=== PATIENT | male | born 2000 | race Caucasian/White ===

== ENCOUNTER 2022-05-16 12:41 | Emergency (ER) | payer BC, SELFPAY ==
[2022-05-16 13:01] VITALS: BP 120/84; PULSE 77; RESP 18; TEMP 37.2; O2SAT 95; BMI 33.9
--- NOTE | 2022-05-16 13:23 | CRLHL7_ITS ---
For Patients: As a result of the Century Cures Act, medical imaging exams and procedure reports are released immediately into your electronic medical record. You may view this report before your referring provider. If you have questions, please contact your health care provider. Indication: Right lower quadrant pain Technique: Volumetric multidetector CT images of the abdomen and pelvis were obtained after the administration of intravenous contrast. 122 cc Isovue 370 low osmolar intravenous contrast Comparison: None available. Findings: The lung bases are clear. The liver is mildly enlarged with minimal hepatic steatosis. There is no focal abnormality. The portal vein is patent. The gallbladder is unremarkable without evidence of radiopaque calculus. There is no significant common biliary ductal dilatation or abrupt cut off. The spleen is normal in enhancement and size. The stomach and duodenum are grossly unremarkable. The pancreas is normal in enhancement without significant atrophy. The adrenal glands are unremarkable. The kidneys demonstrate preserved corticomedullary differentiation without evidence of obstructive uropathy. There is moderate stool seen within the distal colon and rectum commensurate with likely mild fecal impaction there are fluid-filled loops of central and distal small bowel which may represent mild enteritis change. The appendix is unremarkable. There is no significant mesenteric, retroperitoneal, or pelvic sidewall lymph nodes. The aorta is nonaneurysmal. There is no significant atherosclerotic disease appreciated. The solid pelvic viscera are grossly unremarkable. There is no free fluid or free air. The anterior abdominal wall is intact without significant hernias. The lumbar vertebral body heights are grossly maintained in satisfactory alignment without evidence of displaced fracture, lytic or blastic lesion. Impression: Moderate stool seen throughout the distal colon and rectum commensurate with likely moderate fecal impaction. Minimal fluid filled loops of mid to distal small bowel which may represent mild enteritis change. Normal appendix. No other acute intra-abdominal abnormality is appreciated. Please note that all CT scans at this facility use dose modulation, iterative reconstruction, and/or weight-based dosing when appropriate to reduce radiation dose to as low as reasonably achievable. Dictated by Zachariah Martinez MD @ 05/16/2022 3:00:36 PM (Electronically Signed)
--- NOTE | 2022-05-16 13:24 | ED_ITS ---
HPI - Abdominal Pain General Chief Complaint: Abdominal Pain Stated Complaint: Abdominal pain Time Seen by Provider: 05/16/22 12:56 History of Present Illness HPI narrative: This 21-year-old male comes in with right lower quadrant abdominal pain that began 2 days ago. He has some nausea but no vomiting. He does not report any fever, dysuria, or or altered bowel function. He states that the pain is constant but does fluctuate some. Related Data Home Medications Medication Instructions Recorded Confirmed bupropion HCl 300 mg 24 hr tablet, 300 mg PO DAILY 05/16/22 05/16/22 extended release (Wellbutrin XL) bupropion HCl 300 mg 24 hr tablet, 300 mg PO DAILY 05/16/22 05/16/22 extended release (Wellbutrin XL) loratadine 10 mg tablet (Claritin) 10 mg PO DAILY 05/16/22 05/16/22 modafinil 200 mg tablet 200 mg PO DAILY 05/16/22 05/16/22 propranolol 120 mg capsule,24 120 mg PO DAILY 05/16/22 05/16/22 hr,extended release Allergies Allergy/AdvReac Type Severity Reaction Status Date / Time No Known Drug Allergies Allergy Verified 05/16/22 13:07 Review of Systems Status of ROS Reports: 10 or more systems reviewed and unremarkable except as noted in History and below Narrative Constitutional: No fevers, no weight gain or loss. Eyes: No discharge. No vision changes. HENT: No congestion, no sore throat, no ear pain. Cardiovascular: No chest pain, no palpitations. Respiratory: No shortness of breath, no wheezes, no cough. Gastrointestinal: No vomiting, no diarrhea. Right lower quadrant abdominal pain. Genitourinary: No dysuria, no hematuria. Musculoskeletal: Normal range of motion. Skin: No rashes, no pruritis. Neurological: No dizziness, weakness, sensory change, speech change. Endo/Heme/Allergies: No bruising or bleeding. No polydipsia. Pysch: no suicidality, no anxiety, no insomnia. All other systems reviewed and are negative. PFSH PFSH Social History Smoking Status: Never smoker Do you use any of these nicotine containing products: None Second hand tobacco smoke exposure: No How often do you have a drink containing alcohol: never How often do you have six or more drinks on one occasion: Never AUDIT-C Alcohol total score: 0 Non-prescribed substance use: denies use Exam Narrative: Exam Narrative: Constitutional: Well-developed, well-nourished, no acute distress. HEENT: Normocephalic, atraumatic. Neck: Normal range of motion. Nontender. Supple. Heart: Regular. No murmurs. Normal rate. Intact distal pulses. Lungs: Clear to auscultation. No chest discomfort. No wheezes, rhonchi, or rales. Abdomen: Normal bowel sounds. Tenderness at McBurney's point. No obvious rebound tenderness. Rovsing sign is present. Genitalia: Deferred. Back: No midline tenderness. Normal range of motion. Extremities: Normal range of motion. No injury. Skin: Intact. No rash. Warm. No erythema or pallor. Neurologic: No altered sensation. No weakness. Alert and oriented. Psychiatric: No suicidality. No anxiety or depression. No insomnia. Nursing notes and vitals signs are reviewed. Const: Vital Signs, click to edit/add: Vital Signs - 24 hr 05/16/22 13:01 05/16/22 14:18 Temperature 99.0 F Pulse Rate [Pulse Oximeter] 77 69 Respiratory Rate 18 Blood Pressure [Ri t Upper Arm] 120/84 138/95 H Pulse Oximetry 95 100 Oxygen Delivery Me thod Room Air Room Air Course Vital Signs Vital signs: Initial Vital Signs Temperature 99.0 F 05/16/22 13:01 Temperature Source Temporal Artery Scan 05/16/22 13:01 Pulse Rate 77 05/16/22 13:01 Pulse Rhythm 05/16/22 13:01 Respiratory Rate 18 05/16/22 13:01 Blood Pressure 120/84 05/16/22 13:01 Blood Pressure Mean 96 05/16/22 13:01 Blood Pressure Position Sitting 05/16/22 13:01 Pulse Oximetry 95 05/16/22 13:01 Oxygen Delivery Method 05/16/22 13:01 Vital Signs Temperature 99.0 F 05/16/22 13:01 Pulse Rate 77 05/16/22 13:01 Respiratory Rate 18 05/16/22 13:01 Blood Pressure 120/84 05/16/22 13:01 Pulse Oximetry 95 05/16/22 13:01 Oxygen Delivery Method 05/16/22 13:01 Temperature 99.0 F 05/16/22 13:01 Pulse Rate 69 05/16/22 14:18 Respiratory Rate 18 05/16/22 13:01 Blood Pressure 138/95 H 05/16/22 14:18 Pulse Oximetry 100 05/16/22 14:18 Oxygen Delivery Method 05/16/22 14:18 MDM - Abdominal Pain MDM Narrative Medical decision making narrative: This patient comes in with pain in his right lower quadrant as described above. Does not have obvious rebound tenderness. He states that he does have pre- existing recurrent abdominal pain that is nonspecific. Today his labs returned with normal findings. An IV was established where contrast was administered for CT scan. This also returns with no worrisome findings. There is a moderate amount of stool and some mild enteritis findings. These were communicated with the patient who is okay to return home. He declined any medications to treat his symptoms. Lab Data Labs: Lab Results 05/16/22 05/16/22 Range/Units 13:30 13:30 WBC 5.24 (4.50-11.00) K/uL RBC 5.61 (4.30-5.90) m/uL Hgb 16.8 (13.5-17.5) gm/dL Hct 49.0 (37.0-53.0) % MCV 87 (80-100) fL MCH 30 (26-34) pg MCHC 34 (32-36) gm/dL RDW Coeff of Meena 11.3 L (11.5-15.5) % Plt Count 233 (140-440) K/uL Neut % (Auto) 57.8 (42.0-72.0) % Lymph % (Auto) 32.4 (20-44) % [place] % (Auto) 8.6 (0.0-11.0) % Eos % (Auto) 1.0 (0.0-7.0) % Baso % (Auto) 0.2 (0.0-3.0) % Neut # (Auto) 3.03 (1.7-7.0) K/uL Lymph # (Auto) 1.70 (0.90-2.90) K/uL [place] # (Auto) 0.50 (0.00-0.90) K/UL Eos # (Auto) 0.05 (0.00-0.50) K/uL Baso # (Auto) 0.01 (0.00-0.30) K/uL Abs Immat Gran (auto) 0.00 (0.00-0.30) K/uL Sodium 140 (135-149) mmol/L Potassium 4.4 (3.6-5.1) mmol/L Chloride 104 (96-114) mmol/L Carbon Dioxide 25 (20-32) mmol/L BUN 16 (5-24) mg/dL Creatinine 0.8 (0.5-1.5) mg/dL Estimated Creat Clear 161.67 Estimated GFR 130 ml/min Glucose 107 (60-115) mg/dL Calcium 10.2 (8.4-10.6) mg/dL Imaging Data CT scan - abdomen: Radiologist's impression: Moderate stool seen throughout the distal colon and rectum commensurate with likely moderate fecal impaction. Minimal fluid filled loops of mid to distal small bowel which may represent mild enteritis change. Normal appendix. No other acute intra-abdominal abnormality is appreciated. Discharge Plan Discharge Clinical Impression: Abdominal pain Patient Disposition: Home, Self-Care Condition: Stable Additional Instructions: Follow up with MD or return if worsening symptoms happen. Prescriptions: No Action bupropion HCl [Wellbutrin XL] 300 mg tablet extended release 24 hr 300 mg PO DAILY Label Comments: patient takes 450mg daily. bupropion HCl [Wellbutrin XL] 300 mg tablet extended release 24 hr 300 mg PO DAILY propranolol 120 mg capsule,extended release 24 hr 120 mg PO DAILY Label Comments: patient takes 240mg daily modafinil 200 mg tablet 200 mg PO DAILY Label Comments: patient takes 400mg daily loratadine [Claritin] 10 mg tablet 10 mg PO DAILY Follow Up/Referrals: Provider,Not a Local [Primary Care Provider] - Stand Alone Forms: [employer] Paymentth Info Instructions
[2022-05-16 13:44] LABS: Basophils Absolute Auto 0.01 K/uL (0.00-0.30); Basophils Percent Auto 0.2 % (0.0-3.0); Eosinophils Absolute Auto 0.05 K/uL (0.00-0.50); Hemoglobin* 16.8 gm/dL (13.5-17.5); Lymphocytes Percent Auto 32.4 % (20-44); Mean Corpuscular HGB Conc 34 gm/dL (32-36); Mean Corpuscular Hemoglobin 30 pg (26-34); Mean Corpuscular Volume 87 fL (80-100); Monocytes Percent Auto 8.6 % (0.0-11.0); Neutrophils Absolute Auto 3.03 K/uL (1.7-7.0); Neutrophils Percent Auto 57.8 % (42.0-72.0); Platelet Count* 233 K/uL (140-440); RDW Coefficient of Variation % 11.3 % (11.5-15.5); Red Blood Count 5.61 m/uL (4.30-5.90); White Blood Count* 5.24 K/uL (4.50-11.00)
[2022-05-16 13:58] LABS: Chloride* 104 mmol/L (96-114)
[2022-05-16 13:59] LABS: Potassium* 4.4 mmol/L (3.6-5.1); Sodium* 140 mmol/L (135-149)
[2022-05-16 14:00] LABS: Slide Review Reflex No
[2022-05-16 14:01] LABS: Creatinine* 0.8 mg/dL (0.5-1.5); Est. Creatinine Clearance* 161.67; Estimated Glomerular Filt Rate 130 ml/min
[2022-05-16 14:02] LABS: Blood Urea Nitrogen* 16 mg/dL (5-24); Calcium* 10.2 mg/dL (8.4-10.6); Carbon Dioxide* 25 mmol/L (20-32); Glucose* 107 mg/dL (60-115)
[2022-05-16 14:18] VITALS: BP 138/95; PULSE 69; O2SAT 100
[2022-05-16 15:20] VITALS: PULSE 67; O2SAT 97
== END 2022-05-16 15:29 | disposition home or self-care (01) ==
PROVIDERS: Emergency Provider Emergency Medicine Emergency Medical Services
DX: R10.31 Right lower quadrant pain (principal)
CPT/HCPCS: 36415; 74177; 80048; 85025; 99284; 99285; Q9967